=== PATIENT | male | born 1955 | race Caucasian/White ===

== ENCOUNTER 2016-11-26 15:48 | Observation (INO) | payer OTHER ==
[~2016-11-26] VITALS: Ht 170.2 cm; Wt 45.9 kg
[~2016-11-26 15:48] MED LIST: ATOR20TA PO; BUDE10.2 IH; CEPH500C PO; GABA-586 PO; LEVO50TA5 PO; MORP15TA3 PO; OMEP20CA5 PO; ONDA4TAB10 SL; OXYC15TA PO; OXYC30TA PO; PROAIR HFA8.5 GM IH; PROC10TA57 PO; SUCR1TAB29 PO
[2016-11-26] MEDS ORDERED: ONDANSETRON ODT 4 MG TAB.RAPDIS PO ONE (17:15)
[2016-11-26] MEDS ORDERED: MORPHINE SULFATE 10 MG/ML VIAL. IM ONE (17:15)
--- NOTE | 2016-11-26 18:20 | PHYS DOC ---
Past Medical History Past Medical History: Cancer, COPD, GERD Additional Past Medical Histor: LUNG CA STAGE 4 Past Surgical History: Lumbar Laminectomy, Other Additional Past Surgical Histo: Right upper lobectomy, back sx Alcohol Use: None Drug Use: Marijuana Adult General Chief Complaint Chief Complaint: SHORTNESS OF BREATH [facility] HPI Patient is a 61 year old male who presents with complaint of shortness of breath. Patient has history of metastatic lung carcinoma and currently follows a Dr. De Jesus. The patient is on hospice care as he has metastatic lesions including his throat which has caused inability to swallow. Patient is present with his brother who state that the patient is currently on home hospice. The patient became very uncomfortable and currently is not able to get control of symptoms at home. They state that they spoke with the hospice nurse to instructed that the patient come to the emergency department for evaluation. Patient states that due to his shortness of breath he feels very uncomfortable and is asking for help with relief. The patient states that he is very familiar with his disease process and nose that he does not have much longer to live. Patient was told that he has possibly 2 weeks to left by his cancer doctor. Review of Systems Review of Systems Constitutional: Denies fever or chills [] Eyes: Denies change in visual acuity, redness, or eye pain [] HENT: Unable to swallow [] Respiratory: Shortness of breath [] Cardiovascular: No additional information not addressed in HPI [] GI: Denies abdominal pain, nausea, vomiting, bloody stools or diarrhea [] : Denies dysuria or hematuria [] Musculoskeletal: Denies back pain or joint pain [] Integument: Denies rash or skin lesions [] Neurologic: Denies headache, focal weakness or sensory changes [] Endocrine: Denies polyuria or polydipsia [] Current Medications Current Medications Current Medications Medications (Trade) Dose Ordered Sig/Ayanna Start Time Stop Time Status Last Admin Dose Admin Morphine Sulfate 5 mg 1X ONCE 11/26/16 17:15 11/26/16 17:16 DC 11/26/16 17:20 5 MG Ondansetron HCl (Zofran Odt) 4 mg 1X ONCE 11/26/16 17:15 11/26/16 17:16 DC 11/26/16 17:18 4 MG Allergies Allergies Allergies Coded Allergies Type Severity Reaction Last Updated Verified Penicillins Allergy Unknown 10/18/13 Yes carboplatin Adverse Reaction Severe Rash 10/18/13 Yes cisplatin Adverse Reaction Severe Hives 10/18/13 Yes codeine Adverse Reaction Intermediate Nausea and Vomiting 10/18/13 Yes Physical Exam Physical Exam Constitutional: Alert, afebrile, cachectic, appears in moderate to severe discomfort. [] HENT: Normocephalic, atraumatic, bilateral external ears normal, oropharynx moist, unable to tolerate oral secretions, nose normal. [] Eyes: PERRLA, EOMI, conjunctiva normal, no discharge. [] Neck: Normal range of motion, no tenderness, supple, no stridor. [] Cardiovascular: Tachycardia, regular rhythm, no murmur [] Lungs & Thorax: Coarse bilateral breath sounds, moderately restricted air movement bilaterally,, mild expiratory wheezes bilaterally [] Abdomen: Scaphoid abdomen, no tenderness, no masses, no pulsatile masses. [] Skin: Warm, dry, no erythema, no rash. [] Back: No tenderness, no CVA tenderness. [] Extremities: No tenderness, no cyanosis, no clubbing, ROM intact, no edema. [] Neurologic: Alert and oriented X 3, normal motor function, normal sensory function, no focal deficits noted. [] Current Patient Data Vital Signs Vital Signs Date Time Temp Pulse Resp B/P Pulse Ox O2 Delivery O2 Flow Rate FiO2 11/26/16 17:20 96 Nasal Cannula 2.0 11/26/16 16:08 96.7 126 34 154/103 96.7 EKG EKG Not performed [] Radiology/Procedures Radiology/Procedures Not performed [] Course & Med Decision Making Course & Med Decision Making Pertinent Labs and Imaging studies reviewed. (See chart for details) The patient has end-stage metastatic lung carcinoma. The patient has a very short life expectancy in his current state and is currently on hospice care. Patient is requiring more care than can be provided at home currently. I consult to Dr. Lorenz who is on-call for Dr. De Jesus. She suggested giving the patient morphine to help with air hunger and recommended consultation the patient's hospice nurse to discuss possibility of finding inpatient hospice for the patient. I spoke with the patient's hospice nurse who stated that she would work on finding a facility for inpatient hospice. She stated that this would not be able to be done tonight and that the patient if admitted under observation status would not lose hospice and this would be able to be done within the next 12-24 hours. I spoke with Dr. Hidalgo who accepted care of patient in hospital under observation care. Dragon Disclaimer Dragon Disclaimer This electronic medical record was generated, in whole or in part, using a voice recognition dictation system. Departure Departure Impression: Primary Impression: Shortness of breath Additional Impression: Metastatic lung carcinoma Disposition: 09 ADMITTED INPATIENT Admitting Physician: Stephanie Hidalgo Condition: GRAVE Referrals: HAMILTON DE JESUS MD (PCP) Problem Qualifiers Additional Impression: Metastatic lung carcinoma Laterality: unspecified laterality Qualified Code: C78.00 - Secondary malignant neoplasm of unspecified lung COYD RODRIGUEZ MD Nov 26, 2016 18:20
[2016-11-26] MEDS ORDERED: ACETAMINOPHEN 325 MG TABLET. PO PRN (18:30)
[2016-11-26] MEDS ORDERED: ONDANSETRON PF 4 MG/2 ML VIAL. IV PRN (18:30)
[2016-11-26] MEDS: MORPHINE SULFATE 4 MG/ML DISP.SYRIN. IV PRN ×2 (18:45→20:19)
[2016-11-26] MEDS ORDERED: SCOPOLAMINE 1.5MG PATCH. TD ONE (20:00)
--- NOTE | 2016-11-26 20:01 | PDOC1 ---
History and Physical Date of Admission Date of Admission DATE: 11/26/16 TIME: 19:58 Identification/Chief Complaint Chief Complaint short of breath Source Source: Chart review History of Present Illness History of Present Illness Mr. Acosta, is a 61 year old male admit w. acute shortness of breath. 10 yr Hx metastatic lung carcinoma, Dr. Sofia. He has been on hospice, has symptoms that could not be managed at home, and needs inpatient placemetn, he sounds like he has aspirated some liquid and cannot cough it up due to weakness, gross rales and large tracheal nose on interview weak voice, weak cough his brother is in ER with his, and c wpf developer is at bedside, she asked if we could provide a comfort packet for discharge to a [facility] with hospice. I have ordered scopamine and ativan and morphine here dysphagia known, prognosis of < 2 weeks given by other MD Past Medical History Heme/Onc: Cancer Family History Family History: No Significant Social History Smoke: Quit ALCOHOL: none Drugs: None Current Problem List Problem List Problems Medical Problems: (1) Metastatic lung carcinoma Status: Acute (2) Shortness of breath Status: Acute Problems: Current Medications Current Medications Current Medications Morphine Sulfate 5 mg 1X ONCE IM Last administered on 11/26/16 17:20; Start 11/26/16 at 17:15; Stop 11/26/16 at 17:16; Status DC Ondansetron HCl (Zofran Odt) 4 mg 1X ONCE PO Last administered on 11/26/16 17 :18; Start 11/26/16 at 17:15; Stop 11/26/16 at 17:16; Status DC Ondansetron HCl (Zofran) 4 mg PRN Q8HRS PRN IV NAUSEA/VOMITING; Start 11/26/16 at 18:30; Stop 11/27/16 at 18:29 Morphine Sulfate 4 mg 4 mg PRN Q2HR PRN IV PAIN Last administered on 11/26/16 18:45; Start 11/26/16 at 18:30; Stop 11/27/16 at 18:29 Sodium Chloride (Iv Sodium Chloride 0.9% 1000ml Bag) 1,000 ml @ 125 mls/hr Q8H IV ; Start 11/26/16 at 19:00; Stop 11/27/16 at 18:59 Acetaminophen (Tylenol) 650 mg PRN Q4HRS PRN PO FEVER; Start 11/26/16 at 18:30 ; Stop 11/27/16 at 18:29 Active Scripts Active Zofran Odt (Ondansetron) 4 Mg Tab.rapdis 1 Tab SL PRN Q8HRS PRN Compazine (Prochlorperazine Maleate) 10 Mg Tablet 10 Mg PO Q6HRS PRN Morphine Sulfate Er (Morphine Sulfate) 15 Mg Tablet.er 1 Tab PO BID Cephalexin 500 Mg Capsule 1 Cap PO QID Reported Gabapentin 300 Mg Capsule 300 Mg PO TID Oxycodone Hcl 30 Mg Tablet 1 Tab PO Q4HRS Symbicort 160-4.5 Mcg Inhaler (Budesonide/Formoterol Fumarate) 10.2 Gm Hfa.aer.ad 10.2 Gm IH 2 PUFFS BID Allergies Allergies: Coded Allergies: Penicillins (Verified Allergy, Unknown, 10/18/13) carboplatin (Verified Adverse Reaction, Severe, Rash, 10/18/13) cisplatin (Verified Adverse Reaction, Severe, Hives, 10/18/13) codeine (Verified Adverse Reaction, Intermediate, Nausea and Vomiting, 10/18) ROS General: YES: Appetite, Chills, Fatigue, Malaise, No: Night Sweats, Other PSYCHOLOGICAL ROS: No: Anxiety, Behavioral Disorder, Concentration difficultie , Decreased libido, Depression, Disorientation, Hallucinations, Hostility, Irritablity, Memory difficulties, Mood Swings, Obsessive thoughts, Other, Physical abuse, Sexual abuse, Sleep disturbances, Suicidal ideation Eyes: No Blurry vision, No Decreased vision, No Double vision, No Dry eyes, No Excessive tearing, No Eye Pain, No Itchy Eyes, No Loss of vision, No Other, No Photophobia, No Scotomata, No Uses contacts, No Uses glasses Respiratory: YES: Cough, SOB with excertion, Shortness of breath, Wheezing Cardiovascular: No Chest Pain, No Edema, No Lt Headedness, No Orthopnea, No Other, No Palpitations, No Paroxysmal Noc. Dyspnea Gastrointestinal: No Abdominal Pain, No Constipation, No Diarrhea, No Hematochezia, No Melena, No Nausea, No Other, No Vomiting Genitourinary: No , No , No , No , No , No , No , No Discharge, No Dysuria, No Flank Pain, No Frequency, No Hematuria, No Incontinence, No Other, No Pain, No Retention, No Urgency Musculoskeletal: Yes Muscular Weakness Skin: Yes Dry Skin Physical Exam Physical Exam frail and thin General: Alert, Cooperative, moderate distress, Other (very weak, ) HEENT: Atraumatic, PERRLA Lungs: Other (rales, poor volume) Abdomen: Normal bowel sounds, Soft (very thin) Extremities: No clubbing, No edema, Other (marked muscle wasting) Skin: No rashes Neuro: Normal gait, Normal speech, Sensation intact Psych/Mental Status: Other (tried to make jokes and be interactive, some difficulty) Vitals Vitals Vital Signs Date Time Temp Pulse Resp B/P Pulse Ox O2 Delivery O2 Flow Rate FiO2 11/26/16 18:45 96 Nasal Cannula 3.0 11/26/16 16:08 96.7 126 34 154/103 96.7 VTE Prophylaxis Ordered VTE Prophylaxis Devices: No VTE Pharmacological Prophylaxi: No Assessment/Plan Assessment/Plan Acute dyspnea, Chest pain, back pain Stage Iv Lung Cancer, I believe NSC, 10 year history on hospice, presents w/ c wpf developer for symptom management, not doing well at home, seeks inpatient placement, maybe at [place] malnutrition, weight loss dysphagia, aspiration, pneumonitis, he would like to try to continue to eat for pleasure if he likes hospice reviewed mild malnutrition on labs from 11/13, likely worsened now, no labs, as COMFORT MEASURES DNR VILLA PETERSEN MD Nov 26, 2016 20:01
[2016-11-26] MEDS ORDERED: LORAZEPAM 2 MG/ML VIAL IV ONE (20:15)
[2016-11-26] MEDS ORDERED: ALBUTEROL SULFATE 2.5 MG/3 ML NEBU. NEB PRN (20:15)
[2016-11-26 20:45] VITALS: BP 162/93
[2016-11-26 23:49] VITALS: BP 137/86
[2016-11-26] MEDS: IV NORMAL SALINE 1000ML BAG 1,000 ML IV SCH (23:53)
[2016-11-26] MEDS: MORPHINE SULFATE 20 MG/ML CONC SOLUTION. SL PRN (23:53)
[2016-11-27] MEDS: IV NORMAL SALINE 1000ML BAG 1,000 ML IV SCH ×2 (03:00→11:00)
[2016-11-27 03:47] VITALS: BP 92/61
[2016-11-27 05:31] VITALS: BP 162/93
[2016-11-27 07:00] VITALS: BP 120/75
[2016-11-27] MEDS: IPRATRPIUM/ALBUTEROL 0.5/2.5MG 3 ML NEBU. NEB SCH ×3 (08:34→15:41)
[2016-11-27] MEDS: MORPHINE SULFATE 20 MG/ML CONC SOLUTION. SL PRN (08:41)
[2016-11-27] MEDS ORDERED: LORAZEPAM INTENSOL 2 MG/ML ORAL.CONC. SL PRN (10:30)
[2016-11-27 11:00] VITALS: BP 105/66
[2016-11-27] MEDS: LORAZEPAM 2 MG/ML VIAL IV PRN ×2 (14:16)
[2016-11-27] MEDS: MORPHINE SULFATE 4 MG/ML DISP.SYRIN. IV PRN (14:16)
--- NOTE | 2016-11-27 14:16 | PDOC3 ---
Discharge Summary Visit Information Date of Admission: Nov 26, 2016 Date of Discharge: Nov 27, 2016 Admitting Diagnosis Comment: -[id number]-a-[id number]-e- -5-4- -L-U-N-G- -G-N-c-c-e-r- -p-r-e-v- -o-n- -h-o-m-e- -n-d-j-p-i-c-e- Final Diagnosis Problems Medical Problems: (1) Metastatic lung carcinoma Status: Acute (2) Shortness of breath Status: Acute Brief Hospital Course Allergies Allergies Coded Allergies Type Severity Reaction Last Updated Verified Penicillins Allergy Intermediate 11/27/16 Yes carboplatin Adverse Reaction Severe Rash 10/18/13 Yes cisplatin Adverse Reaction Severe Hives 10/18/13 Yes codeine Adverse Reaction Intermediate Nausea and Vomiting 10/18/13 Yes Vital Signs Vital Signs Date Time Temp Pulse Resp B/P Pulse Ox O2 Delivery O2 Flow Rate FiO2 11/27/16 12:13 Room Air 11/27/16 11:28 18 3.0 11/27/16 11:00 97.7 107 105/66 97 97.7 Brief Hospital Course Mr. Acosta is a 61 old male with hx lung CA x 10 yrs, on home hospice, bUt pt soa and home hospice not working for them, Admitted for [facility], Started on hospice bundle, will resume home meds including inhalers and pain meds plus intensol and roxanol and scopolamine patch Dw ROSLYN, RN and pt DNR signed outside [facility]; [facility] COnsults: none Procedures: none Discharge Information Condition at Discharge: Stable Disposition/Orders: Other ([facility] hospice) Scheduled Budesonide/Formoterol Fumarate (Symbicort 160-4.5 Mcg Inhaler) 10.2 GM IH 2 puffs BID (Reported) Cephalexin (Cephalexin) 1 CAP PO QID Gabapentin (Gabapentin) 300 MG PO TID (Reported) Morphine Sulfate (Morphine Sulfate Er) 1 TAB PO BID Oxycodone Hcl (Oxycodone Hcl) 1 TAB PO Q4HRS (Reported) Scheduled PRN Ondansetron (Zofran Odt) 1 TAB SL PRN Q8HRS PRN PRN NAUSEA Prochlorperazine Maleate (Compazine) 10 MG PO Q6HRS PRN PRN NAUSEA TERMULO,PACO Y MD Nov 27, 2016 14:16
[2016-11-27 15:00] VITALS: BP 98/65
[2016-11-29] MEDS ORDERED: SCOPOLAMINE 1.5MG PATCH. TD SCH (09:00)
== END 2016-11-27 15:50 | disposition hospice, inpatient (51) ==
LOC: ER 15:48 → 6 SOUTH 18:06
PROVIDERS: ADMIT Internal Medicine; ATTEND Internal Medicine
DX: R06.00 Dyspnea, unspecified (principal); R07.9 Chest pain, unspecified; M54.9 Dorsalgia, unspecified; E44.1 Mild protein-calorie malnutrition; R63.4 Abnormal weight loss; R13.10 Dysphagia, unspecified; J18.9 Pneumonia, unspecified organism; J44.9 Chronic obstructive pulmonary disease, unspecified; K21.9 Gastro-esophageal reflux disease without esophagitis; Z85.118 Personal history of other malignant neoplasm of bronchus and lung
CPT/HCPCS: 94640; 94760; 96361; 96372; 96374; 96375; 96376; 99285; G0378; J2060; J2270; J7030; J7620; Q0162; G0379